=== PATIENT | male | born 1975 | race Two or more races ===

== ENCOUNTER 2022-11-10 02:15 | Emergency (ER) | payer MEDICAID, OTHER ==
[~2022-11-10] VITALS: Ht 172.7 cm; Wt 81.8 kg
[2022-11-10] MEDS ORDERED: HYDROcodone-ACET 10/325MG TAB PO ONE (02:30)
[2022-11-10] MEDS ORDERED: KETOROLAC TROMETH 30 MG/ML 1ML VIAL IM ONE (02:30)
[2022-11-10] MEDS ORDERED: BENZOCAINE (DENTAL) 20 % SPRAY 60ML MT ONE (05:45)
[2022-11-10] MEDS ORDERED: ACE3T PO (05:45)
[2022-11-10] MEDS ORDERED: AMOX875T4 PO (05:45)
[2022-11-10 06:10] VITALS: BP 138/87
== END 2022-11-10 06:15 | disposition home or self-care (01) ==
LOC: ER 02:15 → EDSEX 02:15 → ER 06:15
DX: K04.7 Periapical abscess without sinus (principal); Z88.1 Allergy status to other antibiotic agents
CPT/HCPCS: 96372; 99283; J1885